=== PATIENT | male | born 1975 | race Caucasian/White ===

== ENCOUNTER 2017-03-28 20:29 | Emergency (ER) | payer SELFPAY ==
[~2017-03-28] VITALS: Ht 162.6 cm; Wt 65.0 kg
[2017-03-28 20:38] VITALS: BP 128/88
== END 2017-03-29 | disposition left against medical advice (07) ==
LOC: ER 22:05
DX: F10.10 Alcohol abuse, uncomplicated (principal); Z53.21 Procedure and treatment not carried out due to patient leaving prior to being seen by health care provider